=== PATIENT | female | born 1960 | race African-American/Black ===

== ENCOUNTER 2016-12-12 17:11 | Emergency (ER) | payer OTHER ==
[2016-12-12 17:16] VITALS: BP 132/85; PULSE 68; TEMP 98.1; BMI 18.8
[2016-12-12] MEDS ORDERED: CEPHALEXIN MONOHYDRATE 500 MG CAPSULE (UD) PO ONE (17:27)
[2016-12-12] MEDS ORDERED: CEPHALEXIN MONOHYDRATE 500 MG CAPSULE (UD) ONE (17:42)
--- NOTE | 2016-12-12 18:04 | PDOC ---
History of Present Illness - General Chief Complaint: Injury Stated Complaint: LACERATION/EMPLOYEE Time Seen by Provider: 12/12/16 17:24 History Source: Patient Exam Limitations: No Limitations - History of Present Illness Initial Comments: 12/12/16 18:04 CHIEF COMPLAINT: Laceration HISTORY OF PRESENT ILLNESS: This is an otherwise healthy 56 year old female who presents complaining of of laceration between the bases of the 3rd and 4th fingers. She cut her finger on a metal trellis covered in soil while gardening. She reports that her tetanus vaccine is up-to-date. REVIEW OF SYSTEMS: GENERAL/CONSTITUTIONAL: No chills or fever. No weakness. No weight change. MUSCULOSKELETAL: Left hand pain and swelling. No neck or back pain. SKIN: Laceration to base of 3rd finger. NEUROLOGIC: No headache, vertigo, loss of consciousness, or loss of sensation. HEMATOLOGIC/LYMPHATIC: No anemia, easy bleeding, or history of blood clots. ALLERGIC/IMMUNOLOGIC: No hives or skin allergy. No latex allergy. PHYSICAL EXAM: GENERAL: The patient is awake, alert, and fully oriented, in no acute distress. EXTREMITIES: 1cm superficial laceration at base of 3rd/4th fingers. Swelling and tenderness over 3rd MCP. Normal flexion/extension of fingers; two point discrimination intact. NEUROLOGICAL: Normal speech, normal gait. CN II-XII grossly intact. PSYCH: Normal mood, normal affect. SKIN: Warm, dry, normal turgor, no rashes or lesions noted. Past History - Past Medical History Allergies/Adverse Reactions: Allergies Allergy/AdvReac Type Severity Reaction Status Date / Time No Known Allergies Allergy Verified 12/12/16 17:17 Home Medications: Ambulatory Orders No Home Medications 0 dose .ROUTE UTDICT 07/09/13 Cephalexin [Keflex] 500 mg PO Q6H #20 capsule 12/12/16 Ibuprofen [Motrin -] 600 mg PO QID #28 tablet 12/12/16 Cardiac Disorders: No Diabetes: No HTN: No Hypercholesterolemia: No Other medical history: CHRONIC BACK PAIN - Psycho/Social/Smoking Cessation Hx Anxiety: No Suicidal Ideation: No Smoking Status: No Smoking History: Never smoked Number of Cigarettes Smoked Daily: 0 Hx Alcohol Use: No Drug/Substance Use Hx: No Substance Use Type: None *Physical Exam - Vital Signs Last Vital Signs Temp Pulse Resp BP Pulse Ox 98.1 F 68 18 132/85 98 12/12/16 17:13 12/12/16 17:13 12/12/16 17:13 12/12/16 17:13 12/12/16 17:13 ED Treatment Course - RADIOLOGY Radiology Studies Ordered: Category Date Time Status HAND- RIGHT [RAD] Stat Radiology 12/12/16 17:27 Completed - Medications Given in the ED: ED Medications Discontinued Medications Generic Name Dose Route Start Last Admin Trade Name Josh PRN Reason Stop Dose Admin Cephalexin HCl 500 mg 12/12/16 17:27 12/12/16 17:45 Keflex - PO 12/12/16 17:28 500 mg ONCE ONE Administration Medical Decision Making - Medical Decision Making 12/12/16 18:10 A/P: 56 year old female with finger laceration; swelling and tenderness of hand distal to laceration. -Xray of hand shows no fracture or retained foreign body -Tetanus is up-to-date -Wound irrigated, laceration repaired with Dermabond -Will cover with Keflex because of high risk for infection with metal trellis/ soil *DC/Admit/Observation/Transfer Diagnosis at time of Disposition: Laceration of hand Qualifiers: Encounter type: initial encounter Foreign body presence: without foreign body Laterality: right Qualified Code(s): S61.411A - Laceration without foreign body of right hand, initial encounter - Discharge Dispostion Disposition: HOME Condition at time of disposition: Stable Admit: No - Prescriptions Prescriptions: Cephalexin [Keflex] 500 mg PO Q6H #20 capsule Ibuprofen [Motrin -] 600 mg PO QID #28 tablet - Referrals Referrals: Paula Cool MD [Primary Care Provider] - - Patient Instructions Printed Discharge Instructions: DI for Minor Laceration Additional Instructions: -Keep the wound clean, dry, and covered today -Tomorrow, you can remove the dressing and wash gently with soap and water and pat dry -The skin glue will peel off on its own -Take antibiotics as prescribed to prevent infection and ibuprofen as needed for pain -Return here for redness around the area, worsening swelling, or any other concerning symptoms - Post Discharge Activity Work/School Note: Back to Work
[2016-12-12] MEDS ORDERED: IBUPROFEN 600 MG TABLET (FP) PO ONE ×2 (18:06→18:09)
== END 2016-12-12 18:18 | disposition home or self-care (01) ==
LOC: JERFT 17:11
PROC: 0HQFXZZ Repair Right Hand Skin, External Approach (ICD-10-PCS; principal; 2016-12-12)
DX: S61.411A Laceration without foreign body of right hand, initial encounter (principal); W45.8XXA Other foreign body or object entering through skin, initial encounter; Y93.9 Activity, unspecified; Y92.096 Garden or yard of other non-institutional residence as the place of occurrence of the external cause; G89.29 Other chronic pain
CPT/HCPCS: 73130-TC-RT; 99281-25

== ENCOUNTER 2016-12-26 11:36 | Emergency (ER) | payer OTHER ==
[2016-12-26 11:40] VITALS: BP 110/45; PULSE 76; TEMP 98; BMI 18.6
--- NOTE | 2016-12-26 12:20 | PDOC ---
History of Present Illness - General Chief Complaint: Muscle Cramping Stated Complaint: RT CALF PAIN Time Seen by Provider: 12/26/16 12:19 History Source: Patient Exam Limitations: No Limitations - History of Present Illness Initial Comments: CHIEF COMPLAINT: 56 y/o afebrile female ([employer] employee) with no significant PMH c/o right intermittent calf pain x 2 weeks. HISTORY OF PRESENT ILLNESS: The patient states the pain is cramping in nature and comes and goes. There are also times when her right calf becomes red and warm. She denies f/c, n/v/d, cough, hemoptysis, CP, SOB, abd pain, back pain, hematuria, dysuria. Vital signs on arrival are within normal limits. REVIEW OF SYSTEMS: GENERAL/CONSTITUTIONAL: No fever/chills. No weakness. No weight change. HEAD, EYES, EARS, NOSE AND THROAT: No change in vision. No ear pain or discharge. No sore throat. CARDIOVASCULAR: No chest pain or shortness of breath. RESPIRATORY: No cough, wheezing, or hemoptysis. GASTROINTESTINAL: No abd pain, nausea, vomiting, diarrhea. GENITOURINARY: No dysuria, frequency, or change in urination. MUSCULOSKELETAL: +right calf pain. No neck or back pain. SKIN: No rash or easy bruising. NEUROLOGIC: No headache, vertigo, loss of consciousness, or loss of sensation. PHYSICAL EXAM: VITAL_SIGNS: within normal limits GENERAL_APPEARANCE: alert, cooperative, no obvious discomfort. The patient is ambulatory with normal gait. MENTAL_STATUS: speech clear, oriented X 3, responds appropriately to questions. NEURO: motor intact and sensory intact in injured extremity. EXTREMITIES: good pulse in injured extremity. Right calf without erythema, edema, warmth or streaking. Multiple varicose veins and spider veins on right upper and lower legs. TTP of right calf with negative Frantz's sign. SKIN: warm, dry, good color. Past History - Past Medical History Allergies/Adverse Reactions: Allergies Allergy/AdvReac Type Severity Reaction Status Date / Time No Known Allergies Allergy Verified 12/26/16 11:37 Home Medications: Ambulatory Orders No Home Medications 0 dose .ROUTE UTDICT 07/09/13 Cephalexin [Keflex] 500 mg PO Q6H #20 capsule 12/12/16 Ibuprofen [Motrin -] 600 mg PO QID #28 tablet 12/12/16 Cardiac Disorders: No Diabetes: No HTN: No Hypercholesterolemia: No - Psycho/Social/Smoking Cessation Hx Anxiety: No Suicidal Ideation: No Smoking Status: No Smoking History: Never smoked Have you smoked in the past 12 months: No Number of Cigarettes Smoked Daily: 0 Information on smoking cessation initiated: No Hx Alcohol Use: No Drug/Substance Use Hx: No Substance Use Type: None *Physical Exam - Vital Signs Last Vital Signs Temp Pulse Resp BP Pulse Ox 98 F 76 18 110/45 100 12/26/16 11:37 12/26/16 11:37 12/26/16 11:37 12/26/16 11:37 12/26/16 11:37 Medical Decision Making - Medical Decision Making A/P: 56 y/o female with right calf pain. Suspect venous stasis. Will do ultrasound to r/o DVT. Ultrasound right leg IMPRESSION: No DVT right leg Gave the patient her results. Suggested she follow up with her doctor if symptoms continue and provided referral for vascular surgeon should she want to follow up regarding her varicose veins. Instructed her to return to the ER with any worsening or concerning symptoms The patient verbalizes understanding of all instructions, has no further questions and is awaiting discharge. *DC/Admit/Observation/Transfer Diagnosis at time of Disposition: Varicose veins of lower extremity, Right calf pain - Discharge Dispostion Disposition: HOME Condition at time of disposition: Good - Referrals Referrals: Paula Cool MD [Primary Care Provider] - Hector Cifuentes MD [Staff Physician] - - Patient Instructions Printed Discharge Instructions: DI for Varicose Veins Additional Instructions: Discharge Instructions: -Take tylenol if needed for pain -Drink at least 64oz of water daily -Stretch your calf muscles multiple times per day -Follow up with Dr. Cifuentes for consult regarding varicose veins -Return to the ER with any worsening or concerning symptoms
== END 2016-12-26 13:21 | disposition home or self-care (01) ==
LOC: JERFT 11:36
DX: I83.891 Varicose veins of right lower extremity with other complications (principal)
CPT/HCPCS: 93971-TC; 99281-25

== ENCOUNTER 2018-04-26 08:40 | Day surgery (SDC) | payer OTHER ==
[2018-04-26 09:21] VITALS: BMI 17.9
[2018-04-26 11:47] VITALS: TEMP 97.9
[2018-04-26 13:36] VITALS: BP 121/67; PULSE 80
--- NOTE | 2018-04-30 17:03 | PATH ---
Surgical Pathology Report Patient Name: REDD VELASQUEZ [facility]. Rec. #: [id number] /Age/Gender: 1960 (Age: 57) / F Account: [id number] Location: U-ENDOSCOPY Taken: 04/26/2018 Received: 04/26/2018 Reported: 04/30/2018 Physicians: Roger Burroughs M.D. Specimen(s) Received A: BX 2ND PORTION DUODENUM B: BX ANTRUM AND BODY Clinical History Dysphagia, anemia, colon screening Postoperative diagnosis: Dysphagia, anemia, poor prep Final Diagnosis A. SECOND PORTION DUODENUM, BIOPSY: DUODENAL MUCOSA WITH NO DIAGNOSTIC ABNORMALITIES. B. ANTRUM AND BODY, BIOPSY: GASTRIC MUCOSA WITH REACTIVE GASTROPATHY. IMMUNOSTAIN IS NEGATIVE FOR H. PYLORI ORGANISMS. Electronically Signed Navarro Brothers M.D. Gross Description A. Received in formalin, labeled "second portion of duodenum" are 2 carlton, irregular portions of soft tissue averaging 0.4 cm. in greatest dimension. The specimens are submitted in toto in one cassette. B. Received in formalin, labeled "antrum and body" are 2 carlton, irregular portions of soft tissue measuring 0.2 and 0.4 cm. in greatest dimension. The specimens are submitted in toto in one cassette. 04/26/201804/26/2018
== END 2018-04-26 13:00 | disposition home or self-care (01) ==
LOC: JASU-ENDO 08:40
PROVIDERS: ATTEND Internal Medicine Gastroenterology
PROC: 0DB68ZX Excision of Stomach, Via Natural or Artificial Opening Endoscopic, Diagnostic (ICD-10-PCS; 2018-04-26)
PROC: 0DB98ZX Excision of Duodenum, Via Natural or Artificial Opening Endoscopic, Diagnostic (ICD-10-PCS; principal; 2018-04-26 10:00)
DX: D64.9 Anemia, unspecified (principal); R10.13 Epigastric pain; K31.9 Disease of stomach and duodenum, unspecified
CPT/HCPCS: 88305-TC; 88342-TC